=== PATIENT | male | born 1980 | race Caucasian/White ===

== ENCOUNTER 2016-08-09 10:34 | Emergency (ER) | payer OTHER ==
[2016-08-09 11:03] LABS: BILIRUBIN,URINE NEGATIVE (NEG); GLUCOSE,URINE NEGATIVE (NEG); NITRITE,URINE NEGATIVE (NEG); PH,URINE 6.5; PROTEIN,URINE NEGATIVE (NEG-TRACE); UROBILINOGEN,URINE 0.2 mg/dL (0.2 mg/dL)
[2016-08-09 11:28] LABS: BACTERIA,URINE 0 /HPF (0-FEW); RBC,URINE 0 /HPF (0-2); SQUAMOUS EPITHELIAL CELL,UR FEW /LPF; WBC,URINE 0 /HPF (0-4)
[2016-08-09] MEDS ORDERED: NAPROXEN 250 MG TABLET PO ONE (11:45)
[2016-08-09 12:08] LABS: BASO # 0.1 x10^3/uL (0.0-0.2); BASO % 1 % (0-3); EOS % 1 % (0-3); HEMATOCRIT 45.7 % (39.0-53.0); HEMOGLOBIN 15.3 g/dL (13.0-17.5); LYMPH # 2.4 x10^3/uL (1.0-4.8); LYMPH % 30 % (24-48); MEAN CORPUSCULAR HEMOGLOBIN 30 pg (25-35); MEAN CORPUSCULAR HGB CONC 34 g/dL (31-37); MEAN CORPUSCULAR VOLUME 90 fL (79-100); MONO % 7 % (0-9); NEUT % 61 % (31-73); PLATELET COUNT 205 x10^3/uL (140-400); RED BLOOD COUNT 5.05 x10^6/uL (4.30-5.70); RED CELL DISTRIBUTION WIDTH 13.4 % (11.5-14.5)
--- NOTE | 2016-08-09 12:13 | RAD ---
Lumbar spine, 3 views, 08/09/2016: History: Low back pain There is a slight left convexity lumbar scoliosis. Slight loss of height anteriorly of the L1 vertebral body appears to be old. There is mild marginal spurring in this region. No acute fracture or dislocation is evident. The paraspinous soft tissues are unremarkable. IMPRESSION: 1. Mild marginal spurring. 2. Minimal scoliosis. 3. No acute bony abnormality is detected.
[2016-08-09 12:19] LABS: CALCIUM 9.3 mg/dL (8.5-10.1); CREATININE 0.8 mg/dL (0.7-1.3); GFR 108.8; POTASSIUM 4.2 mmol/L (3.5-5.1)
[2016-08-09 12:25] LABS: ALBUMIN 3.5 g/dL (3.4-5.0); ALBUMIN/GLOBULIN RATIO 1.1 (1.0-1.7); TOTAL BILIRUBIN 0.3 mg/dL (0.2-1.0); TOTAL PROTEIN 6.6 g/dL (6.4-8.2)
[2016-08-09 12:50] VITALS: BP 129/77
--- NOTE | 2016-08-09 15:41 | ED.ADGEN ---
Past Medical History Past Medical History: Schizophrenia Past Surgical History: No Surgical History Alcohol Use: None Drug Use: None Adult General Chief Complaint Chief Complaint: OTHER COMPLAINTS HPI HPI Patient is a 35 year old man, history of schizophrenia, who lives with his mother who manages his medications, who presents with his mother with report of intermittent back pain over the past week, and several episodes of "wetting the bed". Patient's mother states that he is not experiencing any difficulty passing stools or passing urine generally, however that about 2 months ago he began experiencing intermittent episodes of waking up having urinated in the bed. Denies any dysuria, denies any medication changes, any missed doses of medication, any injuries, any fevers, chills, any discharge or drainage from the penis, any loss of bowel or bladder control, any weakness numbness or tingling. Patient does answer some questions, is at his baseline mental status per mother, states he is having pain across the lower aspect of his back, both left and right, denies any midline tenderness, no rashes or other concerning history or findings. Denies any dysuria, abdominal pain. Is ambulating without issue in the ED. Able to flex and extend his back without difficulty. No recent travel or exposures. No drugs, or alcohol, patient does smoke cigarettes. Review of Systems Review of Systems Constitutional: Denies fever or chills. [] Eyes: Denies change in visual acuity. [] HENT: Denies nasal congestion or sore throat. [] Respiratory: Denies cough or shortness of breath. [] Cardiovascular: Denies chest pain or edema. [] GI: Denies abdominal pain, nausea, vomiting, bloody stools or diarrhea. [] : Denies dysuria. [] Musculoskeletal: Low back pain, no joint pain. Integument: Denies rash. [] Neurologic: Denies headache, focal weakness or sensory changes. [] Endocrine: Denies polyuria or polydipsia. [] Lymphatic: Denies swollen glands. [] Psychiatric: Denies depression or anxiety. [] Current Medications Current Medications Current Medications Medications (Trade) Dose Ordered Sig/Saul Start Time Stop Time Status Last Admin Dose Admin Naproxen (Naprosyn) 250 mg 1X ONCE 08/09/16 11:45 08/09/16 11:46 DC 08/09/16 11:52 250 MG Allergies Allergies Allergies Coded Allergies Type Severity Reaction Last Updated Verified No Known Drug Allergies 08/09/16 No Physical Exam Physical Exam Constitutional: Well developed, well nourished, no acute distress, non-toxic appearance. [] HENT: Normocephalic, atraumatic, bilateral external ears normal, oropharynx moist, no oral exudates, nose normal. [] Eyes: PERRLA, EOMI, conjunctiva normal, no discharge. [] Neck: Normal range of motion, no tenderness, supple, no stridor. [] Cardiovascular:Heart rate regular rhythm, no murmur [] Lungs & Thorax: Bilateral breath sounds clear to auscultation [] Abdomen: Bowel sounds normal, soft, no tenderness, no masses, no pulsatile masses. [] Skin: Warm, dry, no erythema, no rash. [] Back: No tenderness, no CVA tenderness. [] Extremities: No tenderness, no cyanosis, no clubbing, ROM intact, no edema. [] Neurologic: Alert and oriented X 3, normal motor function, normal sensory function, no focal deficits noted. [] Psychologic: Affect normal, judgement normal, mood normal. [] Current Patient Data Vital Signs Vital Signs Date Time Temp Pulse Resp B/P Pulse Ox O2 Delivery O2 Flow Rate FiO2 08/09/16 12:50 92 16 129/77 99 08/09/16 10:45 98.1 Room Air 98.1 Lab Values Laboratory Tests Test 08/09/16 10:40 08/09/16 11:50 Urine Collection Type Unknown Urine Color Yellow Urine Clarity Clear Urine pH 6.5 Urine Specific [place] <=1.005 Urine Protein Negativemg/dL (NEG-TRACE) Urine Glucose (UA) Negativemg/dL (NEG) Urine Ketones (Stick) Negativemg/dL (NEG) Urine Blood Negative (NEG) Urine Nitrite Negative (NEG) Urine Bilirubin Negative (NEG) Urine Urobilinogen Dipstick 0.2mg/dL (0.2 mg/dL) Urine Leukocyte Esterase Negative (NEG) Urine RBC 0/HPF (0-2) Urine WBC 0/HPF (0-4) Urine Squamous Epithelial Cells Few/LPF Urine Bacteria 0/HPF (0-FEW) White Blood Count 8.0x10^3/uL (4.0-11.0) Red Blood Count 5.05x10^6/uL (4.30-5.70) Hemoglobin 15.3g/dL (13.0-17.5) Hematocrit 45.7% (39.0-53.0) Mean Corpuscular Volume 90fL (79-100) Mean Corpuscular Hemoglobin 30pg (25-35) Mean Corpuscular Hemoglobin Concent 34g/dL (31-37) Red Cell Distribution Width 13.4% (11.5-14.5) Platelet Count 205x10^3/uL (140-400) Neutrophils (%) (Auto) 61% (31-73) Lymphocytes (%) (Auto) 30% (24-48) Monocytes (%) (Auto) 7% (0-9) Eosinophils (%) (Auto) 1% (0-3) Basophils (%) (Auto) 1% (0-3) Neutrophils # (Auto) 4.9x10^3uL (1.8-7.7) Lymphocytes # (Auto) 2.4x10^3/uL (1.0-4.8) Monocytes # (Auto) 0.5x10^3/uL (0.0-1.1) Eosinophils # (Auto) 0.1x10^3/uL (0.0-0.7) Basophils # (Auto) 0.1x10^3/uL (0.0-0.2) Sodium Level 145mmol/L (136-145) Potassium Level 4.2mmol/L (3.5-5.1) Chloride Level 109mmol/L (98-107) H Carbon Dioxide Level 26mmol/L (21-32) Anion Gap 10 (6-14) Blood Urea Nitrogen 9mg/dL (8-26) Creatinine 0.8mg/dL (0.7-1.3) Estimated GFR (Cockcroft-Gault) 108.8 BUN/Creatinine Ratio 11 (6-20) Glucose Level 94mg/dL (70-99) Calcium Level 9.3mg/dL (8.5-10.1) Total Bilirubin 0.3mg/dL (0.2-1.0) Aspartate Amino Transferase (AST) 19U/L (15-37) Alanine Aminotransferase (ALT) 39U/L (16-63) Alkaline Phosphatase 34U/L (46-116) L Total Protein 6.6g/dL (6.4-8.2) Albumin 3.5g/dL (3.4-5.0) Albumin/Globulin Ratio 1.1 (1.0-1.7) Laboratory Tests 08/09/16 11:50 Laboratory Tests 08/09/16 11:50 EKG EKG Not indicated. [] Radiology/Procedures Radiology/Procedures [] [facility] [address] [place] [address] IMAGING REPORT Signed PATIENT: SUN MONTES ACCOUNT: [id number] : 1980 LOCATION: ER AGE: 35 SEX: M EXAM STATUS: REG ER ORD. PHYSICIAN: CYRIL SANTIAGO DO REASON: Back pain x 1 week PROCEDURE: LUMBAR SPINE 2-3V Lumbar spine, 3 views, 08/09/2016: History: Low back pain There is a slight left convexity lumbar scoliosis. Slight loss of height anteriorly of the L1 vertebral body appears to be old. There is mild marginal spurring in this region. No acute fracture or dislocation is evident. The paraspinous soft tissues are unremarkable. IMPRESSION: 1. Mild marginal spurring. 2. Minimal scoliosis. 3. No acute bony abnormality is detected. DICTATED and SIGNED BY: BECKA CHINCHILLA MD DATE: 08/09/16 1208 CC: YULI HURLEY MD; CYRIL SANTIAGO DO ~ Course & Med Decision Making Course & Med Decision Making Pertinent Labs and Imaging studies reviewed. (See chart for details) Patient well-appearing, no midline tenderness, however it is a limited historian based on his schizophrenia, although he is answering some questions and is denying concerning history. I did obtain laboratory studies, due to concerns that he may be having "kidney issues", along with urinalysis, which did not reveal any acutely concerning findings. Due to the patient's report of a week of intermittent back pain, an x-ray of the lumbar spine was obtained, that showed no evidence of any acutely abnormal findings. Patient with a normal neurologic examination, normal urinalysis, I do not believe that there is a medical etiology for the patient's intermittent nocturnal urinary incontinence. Patient did receive naproxen in the ED, patient's mother stated that she try to give him I Profen home and he would not take it. After taking the medication, patient stated he did feel better, I did discuss findings in detail with mother and patient at bedside, patient's mother expressed relief, they state they will be able to follow up with the patient's primary care provider in the office, for review of his medications and additional evaluation as needed, and can return to the ED if any new or concerning symptoms develop. Patient discharged home with plan as above, to continue use of NSAIDs as needed, and to return to the ED for concerning symptoms as discussed. Dragon Disclaimer Dragon Disclaimer This electronic medical record was generated, in whole or in part, using a voice recognition dictation system. Departure Impression: Primary Impression: Back pain Additional Impression: Urinary incontinence, nocturnal enuresis Disposition: 01 HOME, SELF-CARE Condition: IMPROVED Problem Qualifiers Primary Impression: Back pain Back pain location: low back pain Chronicity: acute Back pain laterality: bilateral Sciatica presence: without sciatica Qualified Code: M54.5 - Low back pain CYRIL SANTIAGO DO Aug 09, 2016 15:41
== END 2016-08-09 13:03 | disposition home or self-care (01) ==
LOC: ER 10:34
DX: M54.5 Low back pain (principal); R32 Unspecified urinary incontinence; N39.44 Nocturnal enuresis; F20.9 Schizophrenia, unspecified
CPT/HCPCS: 36415; 72100; 80053; 81001; 85027; 99285

== ENCOUNTER → 2018-03-18 | Outpatient (CLI) | payer OTHER ==
--- NOTE | 2018-03-18 13:49 | RAD ---
EXAM: Pelvic sonogram. HISTORY: Pain. TECHNIQUE: Sonographic imaging of the pelvis was performed. COMPARISON: None. FINDINGS: The bladder is normal in configuration and demonstrates normal wall thickness. There is no post void bladder residual. The prostate is normal in size. There is no pelvic free fluid. No pelvic mass is seen. IMPRESSION: Unremarkable pelvic sonogram. Electronically signed by: Daria Marin MD (03/18/2018 1:46 PM) [place] [id number]
== END | disposition home or self-care (01) ==
LOC: US 12:32
PROVIDERS: ATTEND Family Medicine
DX: R10.2 Pelvic and perineal pain (principal)
CPT/HCPCS: 76856